=== PATIENT | male | born 1965 | race Hispanic/Latino ===

== ENCOUNTER 2023-06-10 09:44 | Inpatient (IN) | payer SELFPAY ==
[~2023-06-10] VITALS: Ht 162.6 cm; Wt 65.8 kg
[2023-06-10] MEDS ORDERED: ONDANSETRON HCL INJ 2MG/ML 2ML 2 MG/ML VIAL ONE ×5 (10:12→14:28)
[2023-06-10] MEDS ORDERED: SODIUM CHLORIDE 0.9% 1000ML 1,000 ML ONE ×2 (10:12→20:57)
[2023-06-10] MEDS: Morphine 4mg INJECTION 4 MG/ML INJ IV ONE (10:13)
[2023-06-10] MEDS: ONDANSETRON HCL INJ 2MG/ML 2ML 2 MG/ML VIAL IV STA (10:13)
[2023-06-10] MEDS: SODIUM CHLORIDE 0.9% 1000ML 1,000 ML IV ONE (10:13)
[2023-06-10 10:15] LABS: BASOPHILS % 0.2 % (0.0-1.0); HEMATOCRIT 48.1 % (38.2-49.6); HEMOGLOBIN 16.4 g/dL (14.0-18.0); LYMPHOCYTES # (AUTO) 2.1 (1.0-3.2); LYMPHOCYTES % 10.2 % (18.0-39.1); MEAN CORPUSCULAR HGB CONC 34.1 g/dL (31-35); MEAN CORPUSCULAR VOLUME 93.8 fL (81-99); MONOCYTES # (AUTO) 1.2 (0.2-0.8); MONOCYTES % 5.9 % (4.4-11.3); NEUTROPHILS # (AUTO) 17.2 (2.1-6.9); NEUTROPHILS % 83.3 % (38.7-80.0); PLATELET COUNT 228 x10e3/uL (140-360); RED BLOOD COUNT 5.13 x10e6/uL (4.3-5.7); WHITE BLOOD COUNT 20.63 x10e3/uL (4.8-10.8)
[2023-06-10] MEDS ORDERED: Morphine 4mg INJECTION 4 MG/ML INJ ONE ×4 (10:15→14:28)
[2023-06-10 10:52] LABS: ALBUMIN 4.4 g/dL (3.5-5.0); ALBUMIN/GLOBULIN RATIO 1.3 (0.8-2.0); ANION GAP 18.7 mmol/L (8-16); CALCIUM 10.2 mg/dL (8.4-10.2); CREATININE, SERUM 0.9 mg/dL (0.72-1.25); POTASSIUM 3.7 mmol/L (3.5-5.1); TOTAL PROTEIN 7.9 g/dL (6.5-8.1)
[2023-06-10] MEDS ORDERED: IOPAMIDOL 370 MG/ML 100 ML INFUS..BTL INJ ONE ×2 (11:07→13:44)
[2023-06-10] MEDS ORDERED: SODIUM CHLORIDE 0.9% 1000 ML BAG ONE (12:11)
[2023-06-10] MEDS: SODIUM CHLORIDE 0.9% 1000ML 1,000 ML IV SCH (12:45)
[2023-06-10] MEDS ORDERED: PIPERACILLIN/TAZOBACTAM 3.375 GM VIAL ONE ×3 (12:59→23:57)
[2023-06-10] MEDS ORDERED: POLYETHYLENE GLYCOL 3350 17 GM PACK PO PRN (13:00)
[2023-06-10] MEDS ORDERED: METOPROLOL TARTRATE INJ 1 MG/ML VIAL IV PRN (13:00)
[2023-06-10] MEDS ORDERED: FENTANYL CITRATE/PF 100MCG/2 ML INJ ONE (13:03)
[2023-06-10] MEDS: Morphine 4mg INJECTION 4 MG/ML INJ IV PRN (13:09)
[2023-06-10] MEDS: ONDANSETRON HCL INJ 2MG/ML 2ML 2 MG/ML VIAL IV PRN (13:11)
[2023-06-10] MEDS ORDERED: FAMOTIDINE 20 MG/2 ML VIAL IV ONE (13:31)
[2023-06-10] MEDS ORDERED: PROPOFOL IV EMULSION 10 MG/ML 20 ML VIAL ONE (13:31)
[2023-06-10] MEDS ORDERED: ROCURONIUM BROMIDE 10 MG/ML 5ML VIAL IV ONE (13:31)
[2023-06-10] MEDS ORDERED: SEVOFLURANE INHAL SOLN 250 ML PEN BTL ONE (13:31)
[2023-06-10] MEDS ORDERED: DEXMEDETOMIDINE HCL 200 MCG/2 ML VIAL ONE (13:31)
[2023-06-10] MEDS ORDERED: SUGAMMADEX SODIUM 200 MG/2 ML VIAL IV ONE (13:31)
[2023-06-10] MEDS ORDERED: KETOROLAC TROMETHAMINE 30 MG/ML VIAL ONE (13:31)
[2023-06-10] MEDS ORDERED: ACETAMINOPHEN 1000 MG/100 ML IV ONE (13:31)
[2023-06-10] MEDS ORDERED: LIDOCAINE HCL 2% LOCAL INJ 5 ML SDV VIAL INJ ONE (13:31)
[2023-06-10] MEDS ORDERED: DEXAMETHASONE SOD PHOS INJ 4 MG/ML SDV ONE (13:31)
[2023-06-10] MEDS ORDERED: PHENYLEPHRINE HCL 1% 10 MG/ML VIAL ONE (13:31)
[2023-06-10] MEDS ORDERED: SUCCINYLCHOLINE CHLORIDE 20 MG/ML 10ML VIAL ONE (13:31)
[2023-06-10 13:44] LABS: CHOL/HDL RATIO 4.5 (3.9-4.7); MAGNESIUM 1.6 MG/DL (1.3-2.1); PHOSPHORUS 3.5 MG/DL (2.3-4.7)
[2023-06-10] MEDS ORDERED: Sodium Chloride 0.9% 50ML Bag ONE ×2 (13:44→14:28)
[2023-06-10 13:54] LABS: CLARITY,URINE CLEAR (CLEAR); COLOR,URINE YELLOW (YELLOW)
[2023-06-10 13:55] LABS: BILIRUBIN,URINE NEGATIVE (NEGATIVE); GLUCOSE, URINE NEGATIVE (NEGATIVE); KETONES,URINE 1+ (NEGATIVE); LEUKOCYTE ESTERASE ,URINE NEGATIVE (NEGATIVE); NITRITE,URINE NEGATIVE (NEGATIVE); PH,URINE 5.5 (5 - 7); PROTEIN,URINE DIPSTICK NEGATIVE (NEGATIVE); URINE UROBILINOGEN 0.2 mg/dL (0.2 - 1)
[2023-06-10 14:05] LABS: FREE T4 (FREE THYROXINE) 0.89 ng/dL (0.8-1.8); THYROID STIMULATING HORMONE 2.871 uIU/mL (0.350-4.940)
[2023-06-10] MEDS ORDERED: BUPIVACAINE HCL 0.5% INJ 30 ML VIAL INJ ONE (16:38)
[2023-06-10] MEDS: ALBUTEROL/IPRATROPIUM 3 ML NEB INH ONE (17:53)
[2023-06-10] MEDS ORDERED: ALBUTEROL/IPRATROPIUM 3 ML NEB ONE (17:57)
[2023-06-10 19:20] VITALS: BP 105/66; PULSE 88; RESP 18; TEMP 98; O2SAT 95
[2023-06-10 19:52] VITALS: BP 108/77; PULSE 70; RESP 18; TEMP 98.2; O2SAT 100
[2023-06-10] MEDS ORDERED: MAGNESIUM SULFATE 2GM/50ML 50 ML IV ONE (20:57)
[2023-06-10] MEDS: MAGNESIUM SULFATE 2GM/50ML 50 ML IV ONE (21:22)
[2023-06-10] MEDS ORDERED: DOCUSATE SODIUM 100 MG CAP ONE (21:41)
[2023-06-10] MEDS: DOCUSATE SODIUM 100 MG CAP PO SCH (21:42)
[2023-06-10] MEDS ORDERED: ACETAMINOPHEN 325 MG TAB ONE (21:42)
[2023-06-10] MEDS: ACETAMINOPHEN 325 MG TAB PO PRN (21:43)
[2023-06-10 23:20] VITALS: BP 101/69; PULSE 78; RESP 16; TEMP 98; O2SAT 100
[2023-06-11] VITALS (9 sets, daily range): BP systolic 104–128; BP diastolic 71–86; PULSE 70–90; RESP 17–20; TEMP 98.4–99.5; O2SAT 96–99
[2023-06-11 06:17] LABS: BASOPHILS % 0.2 % (0.0-1.0); HEMATOCRIT 38.1 % (38.2-49.6); HEMOGLOBIN 13.5 g/dL (14.0-18.0); LYMPHOCYTES # (AUTO) 1.5 (1.0-3.2); LYMPHOCYTES % 7.7 % (18.0-39.1); MEAN CORPUSCULAR HGB CONC 35.4 g/dL (31-35); MEAN CORPUSCULAR VOLUME 93.2 fL (81-99); MONOCYTES % 5.1 % (4.4-11.3); NEUTROPHILS # (AUTO) 16.5 (2.1-6.9); NEUTROPHILS % 86.5 % (38.7-80.0); PLATELET COUNT 174 x10e3/uL (140-360); RED BLOOD COUNT 4.09 x10e6/uL (4.3-5.7); WHITE BLOOD COUNT 19.01 x10e3/uL (4.8-10.8)
[2023-06-11 07:01] LABS: ALBUMIN 3.3 g/dL (3.5-5.0); ALBUMIN/GLOBULIN RATIO 1.2 (0.8-2.0); ANION GAP 12.8 mmol/L (8-16); BILIRUBIN,TOTAL 1.1 mg/dL (0.2-1.2); CALCIUM 8.8 mg/dL (8.4-10.2); CREATININE, SERUM 0.86 mg/dL (0.72-1.25); POTASSIUM 3.8 mmol/L (3.5-5.1); TOTAL PROTEIN 6.1 g/dL (6.5-8.1)
[2023-06-11] MEDS: ALBUTEROL/IPRATROPIUM 3 ML NEB NEB SCH (12:37)
[2023-06-12] VITALS (7 sets, daily range): BP systolic 93–108; BP diastolic 72–90; PULSE 72–86; RESP 18–20; TEMP 98.4–98.8; O2SAT 94–98
[2023-06-12 06:46] LABS: BASOPHILS % 0.3 % (0.0-1.0); EOSINOPHILS # (AUTO) 0.1 (0.0-0.4); EOSINOPHILS % 0.8 % (0.0-6.0); HEMATOCRIT 40.9 % (38.2-49.6); HEMOGLOBIN 13.7 g/dL (14.0-18.0); LYMPHOCYTES # (AUTO) 1.7 (1.0-3.2); LYMPHOCYTES % 12.8 % (18.0-39.1); MEAN CORPUSCULAR HEMOGLOBIN 31.9 pg (28-32); MEAN CORPUSCULAR HGB CONC 33.5 g/dL (31-35); MEAN CORPUSCULAR VOLUME 95.3 fL (81-99); MONOCYTES # (AUTO) 1.1 (0.2-0.8); NEUTROPHILS # (AUTO) 10.4 (2.1-6.9); NEUTROPHILS % 77.7 % (38.7-80.0); PLATELET COUNT 180 x10e3/uL (140-360); RED BLOOD COUNT 4.29 x10e6/uL (4.3-5.7); RED CELL DISTRIBUTION WIDTH 13.2 % (11.7-14.4); WHITE BLOOD COUNT 13.33 x10e3/uL (4.8-10.8)
[2023-06-12 07:26] LABS: ANION GAP 14.5 mmol/L (8-16); CALCIUM 8.7 mg/dL (8.4-10.2); CREATININE, SERUM 0.95 mg/dL (0.72-1.25); POTASSIUM 3.5 mmol/L (3.5-5.1)
[2023-06-12] MEDS ORDERED: ONDANSETRON HCL 4 MG ORAL DISINTEGRATING TAB PO PRN (09:45)
[2023-06-12] MEDS ORDERED: NO HOME MEDS (13:36)
[2023-06-12] MEDS ORDERED: Morphine 2mg Syringe 2 MG/ML SYR IV PRN (16:15)
[2023-06-12] MEDS: Morphine 4mg INJECTION 4 MG/ML INJ IV PRN (16:25)
[2023-06-13] VITALS (7 sets, daily range): BP systolic 108–158; BP diastolic 78–90; PULSE 69–82; RESP 18–20; TEMP 98.1–98.8; O2SAT 95–100
[2023-06-13 09:10] LABS: BASOPHILS % 0.3 % (0.0-1.0); EOSINOPHILS # (AUTO) 0.1 (0.0-0.4); HEMATOCRIT 40.6 % (38.2-49.6); HEMOGLOBIN 14.4 g/dL (14.0-18.0); LYMPHOCYTES # (AUTO) 1.3 (1.0-3.2); LYMPHOCYTES % 11.3 % (18.0-39.1); MEAN CORPUSCULAR HEMOGLOBIN 33.1 pg (28-32); MEAN CORPUSCULAR HGB CONC 35.5 g/dL (31-35); MEAN CORPUSCULAR VOLUME 93.3 fL (81-99); MONOCYTES # (AUTO) 0.9 (0.2-0.8); MONOCYTES % 7.9 % (4.4-11.3); NEUTROPHILS # (AUTO) 9.1 (2.1-6.9); NEUTROPHILS % 79.2 % (38.7-80.0); PLATELET COUNT 214 x10e3/uL (140-360); RED BLOOD COUNT 4.35 x10e6/uL (4.3-5.7); RED CELL DISTRIBUTION WIDTH 12.7 % (11.7-14.4); WHITE BLOOD COUNT 11.46 x10e3/uL (4.8-10.8)
[2023-06-13 09:27] LABS: ANION GAP 16.4 mmol/L (8-16); CALCIUM 8.9 mg/dL (8.4-10.2); CREATININE, SERUM 0.84 mg/dL (0.72-1.25); MAGNESIUM 1.8 MG/DL (1.3-2.1); PHOSPHORUS 3.1 MG/DL (2.3-4.7)
[2023-06-13 09:32] LABS: POTASSIUM 3.4 mmol/L (3.5-5.1)
[2023-06-13] MEDS: ACETAMINOPHEN/CODEINE 300MG - 30MG TAB PO PRN (10:33)
[2023-06-13] MEDS: POTASSIUM CHLORIDE 20 MEQ TAB CR PO ONE (10:33)
[2023-06-13] MEDS ORDERED: COLACE100 M1 PO (10:57)
[2023-06-13] MEDS ORDERED: BACTRIM DS TAB1 EACH PO (10:57)
[2023-06-13] MEDS ORDERED: ONDANSETRON ODT4 MG PO (10:57)
[2023-06-13] MEDS ORDERED: ACETAMINOPHEN-1 EAC4 PO (10:57)
[2023-06-13] MEDS ORDERED: MIRALAX17 GM PO (10:57)
[2023-06-13] MEDS ORDERED: ACETAMINOPHEN325 M1 PO (10:57)
== END 2023-06-13 13:11 | disposition home or self-care (01) | DRG 853 ==
LOC: ER 09:51 → ERHOLD 12:41 → MED/SURG 18:51 → OBSVTOIN 22:51 → MED/SURG3 06-12 19:48
PROVIDERS: ADMIT Internal Medicine; ATTEND Internal Medicine
PROC: 3E03329 Introduction of Other Anti-infective into Peripheral Vein, Percutaneous Approach (ICD-10-PCS; 2023-06-10)
PROC: 0DTJ4ZZ Resection of Appendix, Percutaneous Endoscopic Approach (ICD-10-PCS; principal; 2023-06-10 16:35)
DX: A41.9 Sepsis, unspecified organism (principal); K35.32 Acute appendicitis with perforation, localized peritonitis, and gangrene, without abscess; R06.89 Other abnormalities of breathing; F17.210 Nicotine dependence, cigarettes, uncomplicated; R73.9 Hyperglycemia, unspecified; E83.42 Hypomagnesemia; K57.30 Diverticulosis of large intestine without perforation or abscess without bleeding; K76.0 Fatty (change of) liver, not elsewhere classified; Z11.52 Encounter for screening for COVID-19
CPT/HCPCS: 36415; 71046; 74177; 80048; 80053; 80061; 81001; 83036; 83690; 83735; 84100; 84439; 84443; 85025; 88304; 94640; 94799; 99284; J0330; J1100; J1885; J2001; J2270; J2371; J2405; J2543; J3475; J7030; Q9967; U0002

== ENCOUNTER 2024-08-04 16:20 | Emergency (ER) | payer SELFPAY ==
[~2024-08-04 16:20] MED LIST: ACETAMINOPHEN-1 EAC4 PO; ACETAMINOPHEN325 M1 PO; BACTRIM DS TAB1 EACH PO; COLACE100 M1 PO; MIRALAX17 GM PO; NO HOME MEDS; ONDANSETRON ODT4 MG PO
== END 2024-08-04 20:25 | disposition short-term general hospital (02) ==
LOC: ER 17:41
DX: R60.9 Edema, unspecified (principal)

== ENCOUNTER 2024-10-03 16:03 | Emergency (ER) | payer SELFPAY ==
[~2024-10-03] VITALS: Ht 162.6 cm; Wt 65.8 kg
[2024-10-03] MEDS: SODIUM CHLORIDE 0.9% 1000ML 1,000 ML IV STA (17:01)
[2024-10-03 17:20] LABS: BASOPHILS % 0.5 % (0.0-1.0); EOSINOPHILS % 1.0 % (0.0-6.0); LYMPHOCYTES % 34.8 % (18.0-39.1); MONOCYTES % 10.9 % (4.4-11.3); NEUTROPHILS % 52.6 % (38.7-80.0); RED CELL DISTRIBUTION WIDTH 13.7 % (11.7-14.4)
[2024-10-03 17:31] LABS: INR 0.95
[2024-10-03 17:42] LABS: EST GLOMERULAR FILTRATION RATE 103.0 ML/MIN (>=60)
[2024-10-03 17:43] LABS: CORONAVIRUS COVID-19 AG NEGATIVE (NEGATIVE)
[2024-10-03 18:36] LABS: LEUKOCYTE ESTERASE ,URINE NEGATIVE (NEGATIVE); PROTEIN,URINE DIPSTICK NEGATIVE (NEGATIVE); URINE UROBILINOGEN 0.2 mg/dL (0.2 - 1)
[2024-10-03 18:53] VITALS: PULSE 83; RESP 16; TEMP 98.8
[2024-10-03 19:18] VITALS: BP 144/82; PULSE 83; RESP 16; TEMP 98.8; O2SAT 98
== END 2024-10-03 19:19 | disposition home or self-care (01) ==
LOC: ER 16:52
DX: R51.9 Headache, unspecified (principal); B34.9 Viral infection, unspecified; R11.0 Nausea; R53.83 Other fatigue; F17.210 Nicotine dependence, cigarettes, uncomplicated; Z11.52 Encounter for screening for COVID-19
CPT/HCPCS: 36415; 70450; 80053; 81001; 82550; 84484; 85025; 85610; 85730; 87426; 99284; J7030